=== PATIENT | male | born 1980 | race Caucasian/White ===

== ENCOUNTER 2016-12-03 09:14 | Inpatient (IN) | payer BC ==
[2016-12-03] MEDS ORDERED: NS 0.9% 1000 ML* 1,000 ML IV ONE ×3 (09:21→10:57)
[2016-12-03 09:43] LABS: Comments Flag Yes; Hematocrit 49 % (42-52); Hemoglobin 15.9 g/dl (14.0-18.0); Mean Corpuscular HGB Conc 32 g/dl (31-36); Mean Corpuscular Hemoglobin 27 pg (27-31); Mean Corpuscular Volume 83 fL (80-94); Mean Platelet Volume 9 um3 (7.4-10.4); Red Blood Count 5.95 10^6/ul (4.0-5.4); Red Cell Distribution Width 15 % (10.5-15)
[2016-12-03 09:44] LABS: Add Diff/Slide Review? Slide Review Added
[2016-12-03 09:59] LABS: Albumin 4.2 g/dL (3.2-5.2); BUN/Creatinine Ratio 16.5 (8-20); C Reactive Protein 15.16 mg/L (< 5.00); Calcium 9.4 mg/dL (8.6-10.3); EGFR African American 97.9 (>60); EGFR Non-African American 76.1 (>60); Globulin 3.4 g/dL (2-4); Potassium 4.1 mmol/L (3.5-5.0); Total Bilirubin 0.6 mg/dL (0.2-1.0); Total Protein 7.6 g/dL (6.4-8.9)
[2016-12-03] MEDS ORDERED: NS 0.9% IVPB ONE ×2 (10:04)
[2016-12-03] MEDS ORDERED: TAZOBACTAM IVPB ONE ×2 (10:04)
[2016-12-03] MEDS ORDERED: PIPERACILLIN IVPB ONE ×2 (10:04)
[2016-12-03 10:05] LABS: Troponin I 0.11 ng/mL (<0.04)
--- NOTE | 2016-12-03 10:20 | RAD ---
Indication: Shortness of breath. Single frontal view of the chest performed at 0955 hours was reviewed. No prior study is available for comparison.. No mediastinal shift is noted. Heart is of normal size and configuration. Lung soto appear clear. IMPRESSION: NO ACTIVE CARDIOPULMONARY DISEASE IS NOTED.
[2016-12-03] MEDS ORDERED: Iohexol 350* (CONTRAST) 500 ML MDV IV ONE (10:39)
--- NOTE | 2016-12-03 10:59 | RAD ---
HISTORY: Shortness of breath and tachycardia COMPARISONS: None TECHNIQUE: Multiple contiguous axial CT scans were obtained of the chest, abdomen, and pelvis after the administration of intravenous contrast. Coronal and sagittal multiplanar reformations are submitted for review.. Oral contrast was not administered. Delayed images were obtained through the abdomen and pelvis. FINDINGS: CHEST NECK AND THYROID: The lower neck and thyroid are unremarkable. CHEST WALL: There is no lower cervical, axillary, or supraclavicular lymphadenopathy by size criteria. HEART AND PERICARDIUM: The heart is unremarkable. AORTA AND PULMONARY VASCULATURE: There are multiple pulmonary arterial filling defects at the level of the main pulmonary arterial branches and lobar branches bilaterally consistent with large bilateral pulmonary emboli. The aorta is unremarkable for technique MEDIASTINUM: There is no mediastinal lymphadenopathy by size criteria. LARRY: There is no hilar lymphadenopathy by size criteria. AIRWAY AND ESOPHAGUS: The airway is unremarkable, without endobronchial filling defect. The esophagus is grossly normal. LUNG PARENCHYMA: The lungs are clear. PLEURA: No pleural abnormalities are noted. BONES AND SOFT TISSUES: No bone or soft tissue abnormalities are noted. ABDOMEN/PELVIS: LIVER: The liver is diffusely low in attenuation compared to the spleen. There are no focal hepatic parenchymal masses. The liver is enlarged measuring 27 cm in long axis. BILE DUCTS: There is no intrahepatic or extrahepatic biliary dilatation. GALLBLADDER: The gallbladder is normal, without pericholecystic inflammatory change. PANCREAS: The pancreas is normal, without mass or ductal dilatation. SPLEEN: Normal in size and appearance. UPPER GI TRACT: Evaluation of the gastrointestinal tract is limited by incomplete gastric distention. The upper GI tract is unremarkable. SMALL BOWEL \T\ MESENTERY: The small bowel is normal in contour, course, and caliber. There is no obstruction or dilatation. COLON: The colon is normal in contour, course, caliber. There is no pericolonic inflammatory change. ADRENALS: Normal bilaterally. KIDNEYS: The kidneys are normal in shape, size, contour, and axis. There is no hydronephrosis or nephrolithiasis. There is a parapelvic cyst on the left. BLADDER: The bladder is smooth in contour. PELVIC ORGANS: The prostate gland is normal. The seminal vesicles are symmetric. AORTA: The aorta is normal. IVC: Unremarkable LYMPH NODES: There is no lymphadenopathy by size criteria. ABDOMINAL WALL: There is a large fat-containing umbilical hernia BONES: Unremarkable OTHER: None IMPRESSION: 1. LARGE BILATERAL PULMONARY EMBOLI. 2. LARGE FAT-CONTAINING VENTRAL HERNIA. 3. HEPATOMEGALY WITH FATTY INFILTRATION OF LIVER. PRELIMINARY FINDINGS OF THE PULMONARY EMBOLI WERE DISCUSSED WITH DR. SALVADOR AT APPROXIMATELY 10:53 AM ON DECEMBER 03, 2016.
[2016-12-03] MEDS ORDERED: Zosyn 3.375 GM IV - ED ONCE IVPB ONE ×2 (11:00)
[2016-12-03] MEDS ORDERED: Alteplase* 100 MG in PREMIX* 100 ML IVPB ONE (11:07)
--- NOTE | 2016-12-03 13:51 | RAD ---
Indication: Pulmonary embolism. Duplex Doppler sonography of the deep venous system of both lower extremities Bilaterally the common femoral veins, proximal greater saphenous veins, proximal deep femoral veins, femoral veins and popliteal veins appear patent and compressible. The right posterior tibial veins and peroneal veins are patent and compressible. The left calf demonstrates one of the paired posterior tibial veins demonstrate noncompressibility with no flow. The peroneal veins in the left calf are patent. IMPRESSION: There is deep venous system thrombosis involving one of the paired posterior tibial veins in the left calf.
[2016-12-03] MEDS: Heparin DRIP 25,000 UNITS(*) 25,000 UNITS/500 ML BAG IV SCH (13:59)
[2016-12-03] MEDS: Warfarin TAB(*) 5 MG PO SCH (17:38)
--- NOTE | 2016-12-03 18:21 | ED ---
nimco Hastings Timothy, scribed for Nick Hanley MD on 12/03/16 at 0935 . Shortness of Breath - HPI Summary HPI Summary: Dickson Howard is a 36 yo male presenting to [facility] with SOB with any exertion as well as diaphoresis suddenly since this morning. He denies CP. He states he has had an uncomfortable "bloating" sensation for the past 3 days. He is not in any current pain. His Mhx includes HTN. - History of Current Complaint Time Seen by Provider: 12/03/16 09:20 Hx Obtained From: Patient Onset/Duration: Sudden Onset, Lasting Hours, Still Present Timing: Constant Current Severity: Moderate Dyspnea At: Rest - Allergy/Home Medications Allergies/Adverse Reactions: Allergies Allergy/AdvReac Type Severity Reaction Status Date / Time No Known Allergies Allergy Verified 01/27/16 14:58 Home Medications: Home Medications NK [No Home Medications Reported] 12/03/16 [History Confirmed 12/03/16] PMH/Surg Hx/FS Hx/Imm Hx Cardiovascular History: Reports: Hx Hypertension Infectious Disease History: Denies: Traveled Outside the [place] in Last 30 Days - Family History Known Family History: Positive: Unknown - Social History Alcohol Use: None Substance Use Type: Reports: None Hx Tobacco Use: No Smoking Status (MU): Never Smoked Tobacco Review of Systems Positive: Skin Diaphoresis Eyes: Negative ENT: Negative Negative: Chest Pain Positive: Shortness Of Breath Gastrointestinal: Negative Genitourinary: Negative Musculoskeletal: Negative Skin: Negative Neurological: Negative Psychological: Normal All Other Systems Reviewed And Are Negative: Yes Physical Exam - Summary Physical Exam Summary: VITAL SIGNS: Reviewed. GENERAL: Patient is a well-developed and obese male who is lying in some distress secondary to his SOB. He is able to speak complete sentences. HEAD AND FACE: No signs of trauma. No ecchymosis, hematomas or skull depressions. No sinus tenderness. EYES: PERRLA, EOMI x 2, No injected conjunctiva, no nystagmus. EARS: Hearing grossly intact. Ear canals and tympanic membranes are within normal limits. MOUTH: Oropharynx within normal limits. NECK: Supple, trachea is midline, no adenopathy, no JVD, no carotid bruit, no c- spine tenderness, neck with full ROM. CHEST: Symmetric, no tenderness at palpation LUNGS: Clear to auscultation bilaterally. No wheezing or crackles. CVS: Regular rate and rhythm, S1 and S2 present, no murmurs or gallops appreciated. ABDOMEN: Soft, non-tender. No signs of distention. No rebound no guarding, and no masses palpated. Bowel sounds are normal. EXTREMITIES: FROM in all major joints, no edema, no cyanosis or clubbing. NEURO: Alert and oriented x 3. No acute neurological deficits. Speech is normal and follows commands. SKIN: Dry and warm Vital Signs On Initial Exam: Initial Vital Signs Temp 96 F 12/03/16 09:15 Pulse 147 12/03/16 09:15 Resp 26 12/03/16 09:15 BP 92/65 12/03/16 09:15 Pulse Ox 95 12/03/16 09:15 Diagnostics - Laboratory Result Diagrams: 12/03/16 09:30 12/03/16 09:30 Lab Statement: Any lab studies that have been ordered have been reviewed, and results considered in the medical decision making process. - Radiology CXR Xray Interpretation: No Acute Changes - IMPRESSION: NO ACTIVE CARDIOPULMONARY DISEASE IS NOTED. Radiology Interpretation Completed By: Radiologist - CT Chest/A/P CTA CT Interpretation: Positive (See Comments) - IMPRESSION: 1. LARGE BILATERAL PULMONARY EMBOLI. 2. LARGE FAT-CONTAINING VENTRAL HERNIA. 3. HEPATOMEGALY WITH FATTY INFILTRATION OF LIVER. CT Interpretation Completed By: Radiologist - EKG 0920 Cardiac Rate: Tachycardia - 149 BPM EKG Interpretation: Sinus tachycardia @ 149 BPM. Re-Evaluation - Re-Evaluation First Eval Re-Evaluation Time: 10:09 Change: Worse Comment: Pt is c/o abd pain Second Eval Change: Unchanged Comment: Discussed lab and imaging results with Pt, as well as results of consultations. Pt is agreeable to be admitted to the ICU. Course/Dx - Course Assessment/Plan: Dickson Howard is a 36 yo male presenting to [facility] with sudden -onset SOB and diaphoresis this morning, with an uncomfortable "bloating" sensation for the past 3 days. In the ED course he received 3.5 L of IV fluids for his hypotension and NaCl with piperacillin and tazobactam, as well as alteplase. His CXR suggests no acute cardiopulmonary disease. His CTA Chest/A/P suggests large bilateral pulmonary emboli, large fat-containing ventral hernia, and hepatomegaly with fatty infiltration of the liver. Of note in his lab studies is his WBC count of 25 with no banding, his D-dimer of 795, his glucose of 311, his lactic acid of 5.1, his troponin of 0.11, and his CRP of 15. After clinical examination and review of his lab and imaging studies as well as discussion with Dr. Anderson and Dr. Jacobs, he will be admitted to the ICU with bilateral pulmonary emboli. Dr. Jacobs recommends a TPA treatment given that Pt is unstable, hypotensive, and tachycardic. I discussed the benefits and risks of TPA treatment with the Pt, he understand and agrees to TPA treatment. At this point, Dr. jacobs will take the Pt to the ICU. Pt is unstable and critically ill. - Diagnoses Differential Diagnosis/HQI/PQRI: Positive: Pulmonary Embolism Provider Diagnoses: Pulmonary embolism, bilateral - Physician Notifications Discussed Care of Patient With: 1008 - Dr. Jacobs (ICU) - discussed Pt condition. Recommends CTA chest, CT A/P. 1052 - Dr. Zee (radiology) - discussed CT Chest/A/P, there are bilateral pulmonary emboli. 1102 - Dr. Jacobs (ICU) - discussed results of CT Chest/A/P and consult with Dr. Zee. Accepts Pt for admission to ICU. - Critical Care Time Critical Care Time: 30-74 min Discharge - Discharge Plan Condition: Stable Disposition: ADMITTED TO [facility] Referrals: Non Staff,Doctor [Primary Care Provider] - The documentation as recorded by the nimco tan Timothy accurately reflects the service I personally performed and the decisions made by me, Nick Hanley MD.
[2016-12-03] MEDS: Famotidine TAB* 20 MG PO SCH (20:28)
--- NOTE | 2016-12-03 21:41 | HP ---
ADMISSION HISTORY AND PHYSICAL: DATE OF ADMISSION: 12/03/16 REASON FOR ICU ADMISSION: Acute pulmonary emboli with hemodynamic instability. HISTORY OF PRESENT ILLNESS: The patient is a 36-year-old white male, who presented to the emergency department with a 3-day history of increasing shortness of breath and on CT angiography of the chest was found to have large, bilateral pulmonary emboli. The patient has no prior history of venous thromboembolism and no history of leg trauma, diabetes, or coagulation abnormalities. The patient is, however, morbidly obese. The patient denies chest pain, cough, or hemoptysis. PAST MEDICAL HISTORY: There are no other medical problems. MEDICATIONS: There are no outpatient meds. 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 There is no history of alcohol or drug abuse and no history of smoking. REVIEW OF SYSTEMS: Noncontributory. PHYSICAL EXAMINATION GENERAL: On an initial exam, the patient was apprehensive, tachypneic, and mildly diaphoretic. VITAL SIGNS: Temp was 97.1, heart rate was 140, blood pressure was 80/64, respiratory rate was 36, and O2 sat was 96% on nasal O2 at 6 L per minute. HEENT: Oropharynx was clear. NECK: Supple and there were no masses or jugular venous distention. LUNGS: Auscultation of the lungs revealed diminished breath sounds with no wheezes or rhonchi. CARDIAC: Revealed no murmurs, rubs, or gallops. ABDOMEN: Protuberant, but nontender. EXTREMITIES: Warm, not cyanotic and not edematous. DIAGNOSTIC STUDIES/LAB DATA: Admission laboratory tests were significant for a white blood count of 25,000, bicarb of 20, anion gap of 16, and lactate of 5.1. Chest x-ray showed cardiomegaly with no pulmonary infiltrates. EKG showed a sinus tachycardia with no ST or T-wave changes. CT angiogram of the chest was as reported. OVERALL IMPRESSION: Bilateral pulmonary emboli with hemodynamic instability in a patient with morbid obesity. MANAGEMENT PLAN: Will begin with thrombolytic therapy using tPA and follow this with a continuous IV heparin infusion. We will also use Coumadin as an oral anticoagulant given the patient's obesity (i.e., newer anticoagulants use the same dose regardless of body weight, and thus micht produce inadequate anticoagulation in morbidly obese patients). Prognosis is guarded at this time. CRITICAL CARE TIME: (Including time examining the patient in the ED and ICU) is 60 minutes. [id number]/[facility] #: [id number] JACKIE
[2016-12-03] MEDS ORDERED: Heparin VIAL(*) 5000 UNITS/ML VIAL (FIVE THOUSAND) ONE (21:44)
[2016-12-03] MEDS: Heparin VIAL(*) 5000 UNITS/ML VIAL (FIVE THOUSAND) IV PRN (21:48)
[2016-12-04 06:10] LABS: Hematocrit 40 % (42-52); Mean Corpuscular HGB Conc 33 g/dl (31-36); Mean Corpuscular Hemoglobin 28 pg (27-31); Mean Corpuscular Volume 83 fL (80-94); Mean Platelet Volume 9 um3 (7.4-10.4); Red Blood Count 4.74 10^6/ul (4.0-5.4); Red Cell Distribution Width 15 % (10.5-15)
[2016-12-04 06:27] LABS: EGFR African American 114.7 (>60); EGFR Non-African American 89.2 (>60)
[2016-12-04] MEDS: Heparin VIAL(*) 5000 UNITS/ML VIAL (FIVE THOUSAND) IV PRN ×3 (06:50→23:32)
[2016-12-04] MEDS: Famotidine TAB* 20 MG PO SCH ×2 (08:10→20:50)
--- NOTE | 2016-12-04 12:21 | PN ---
Critical Care Services: Has improved markedly since admission. Hypotension and diaphoresis have resolved , and patient is now breathing comfortably. Is currently on a heparin infusion, and first coumadin dose was given yesterday. Vital Signs: Temp Pulse Resp BP SpO2 FiO2 98.7 F 92 20 138/87 92 99 Physical Exam: Gen:Sitting up in bed. No distess. Lungs: No wheezes or crackles. Extremities:No cyanosis or edema Fluid Balance (Past 24 Hours): 12/04/16 06:59 Intake Total 2824 Output Total 2450 Balance 374 Weight 390 lb 7oz Intake: IV Fluids 1112 Medicated IV 362 heparin 362 Oral 1350 Output: Urine 2450 Labs: 12/04/16 12/04/16 05:47 05:47 INR (Anticoag Therapy) 1.14 H BUN 14 Creatinine 0.95 Est GFR ( Amer) 114.7 Est GFR (Non-Af Amer) 89.2 12/04/16 05:47 WBC 11.0 RBC 4.74 Hgb 13.0 L Hct 40 L MCV 83 MCH 28 MCHC 33 RDW 15 Plt Count 187 MPV 9 Studies: Venous ultrasound: Clot in the posterior tibial veins in the left calf. No thigh thrombi. Nutrition: Regular diet Impression: Clinically much improved. Has minimal residual clot burden in the legs. Plan: 1. Continue heparin infusion until INR is therapeutic on coumadin. 2. Hematology consult (sent) to evaluate coagulation status.
[2016-12-04] MEDS: Heparin DRIP 25,000 UNITS(*) 25,000 UNITS/500 ML BAG IV SCH ×2 (13:18→13:38)
[2016-12-04] MEDS: Warfarin TAB(*) 5 MG PO SCH (17:01)
[2016-12-05] MEDS ORDERED: Dextrose 50% Syringe 50 ML* 25 GM/50 ML SYRINGE IV PUSH PRN (07:30)
[2016-12-05 07:44] LABS: Hematocrit 42 % (42-52); Mean Corpuscular HGB Conc 34 g/dl (31-36); Mean Corpuscular Hemoglobin 28 pg (27-31); Mean Corpuscular Volume 82 fL (80-94); Red Blood Count 5.08 10^6/ul (4.0-5.4); Red Cell Distribution Width 14 % (10.5-15); White Blood Count 11.2 10^3/ul (3.5-10.8)
[2016-12-05 07:48] LABS: Comments Flag Yes
[2016-12-05 07:50] LABS: Add Diff/Slide Review? Slide Review Added
[2016-12-05] MEDS: Heparin DRIP 25,000 UNITS(*) 25,000 UNITS/500 ML BAG IV SCH (08:13)
[2016-12-05] MEDS: Heparin VIAL(*) 5000 UNITS/ML VIAL (FIVE THOUSAND) IV PRN (08:13)
[2016-12-05] MEDS: Hydrochlorothiazide TAB* 25 MG PO SCH (08:20)
[2016-12-05] MEDS: Famotidine TAB* 20 MG PO SCH ×2 (08:20→20:49)
[2016-12-05] MEDS: Insulin LISPRO* 1 UNITS UNIT SUBCUT SCH ×4 (08:20→20:52)
[2016-12-05 09:11] LABS: Troponin I 0.08 ng/mL (<0.04)
[2016-12-05 10:00] LABS: Calcium 8.6 mg/dL (8.6-10.3); EGFR African American 146.2 (>60); EGFR Non-African American 113.7 (>60)
[2016-12-05 10:05] LABS: Potassium 4.2 mmol/L (3.5-5.0)
[2016-12-05] MEDS ORDERED: Argatroban(*) 250 MG in NS 0.9% 250 ML* 247.5 ML IV SCH ×4 (11:00)
--- NOTE | 2016-12-05 12:10 | PN ---
Subjective Date of Service: 12/05/16 Interval History: Pt feels well. no complaints. questions about Coumadin tx and new DM dx answered and explained Objective Active Medications: Dextrose (D50w Syringe 50 Ml*) 12.5 gm IV PUSH .FOR FS < 60 - SS PRN PRN Reason: FS < 60 Famotidine (Pepcid Tab*) 20 mg PO BID [facility] Last Admin: 12/05/16 08:20 Dose: 20 mg Hydrochlorothiazide (Hydrodiuril Tab*) 25 mg PO DAILY [facility] Last Admin: 12/05/16 08:20 Dose: 25 mg Argatroban 250 mg/ Sodium (Chloride) 250 mls @ 21.25 mls/hr IV Q12H THAI; 2 MCG/ KG/MIN PRN Reason: Protocol Last Admin: 12/05/16 11:29 Dose: 21.25 mls/hr Insulin Human Lispro (Humalog*) 0 units SUBCUT ACHS [facility] PRN Reason: Protocol Last Admin: 12/05/16 11:35 Dose: Not Given Pharmacy Profile Note (Coumadin Daily Reminder*) 1 note FOLLOW UP 1700 [facility] Last Admin: 12/04/16 17:01 Dose: 1 note Warfarin Sodium (Coumadin Tab(*)) 5 mg PO DAILY@1700 [facility] PRN Reason: Protocol Last Admin: 12/04/16 17:01 Dose: 5 mg Vital Signs 12/04/16 12/04/16 12/04/16 13:00 14:12 15:53 Temperature 98.3 F 98.1 F Pulse Rate 92 102 95 Respiratory 19 16 Rate Blood Pressure 150/87 142/80 163/95 (mmHg) O2 Sat by Pulse 93 94 95 Oximetry 12/04/16 12/04/16 12/04/16 16:03 19:43 20:53 Temperature 98.7 F Pulse Rate 96 93 Respiratory Rate Blood Pressure 151/92 174/96 148/80 (mmHg) O2 Sat by Pulse 96 Oximetry 12/05/16 12/05/16 12/05/16 00:04 01:52 03:31 Temperature 98.5 F 98.3 F Pulse Rate 89 85 Respiratory 16 16 16 Rate Blood Pressure 146/89 144/88 (mmHg) O2 Sat by Pulse 96 98 Oximetry 12/05/16 12/05/16 07:16 08:00 Temperature 98.0 F Pulse Rate 88 Respiratory 18 16 Rate Blood Pressure 153/96 (mmHg) O2 Sat by Pulse 96 Oximetry Oxygen Devices in Use Now: None Appearance: 36 yo obese M in nAd, aAOx3 Eyes: No Scleral Icterus, PERRLA Ears/Nose/Mouth/Throat: NL Teeth, Lips, Gums, Mucous Membranes Moist Neck: NL Appearance and Movements; NL JVP, Trachea Midline Respiratory: Symmetrical Chest Expansion and Respiratory Effort, Clear to Auscultation Cardiovascular: NL Sounds; No Murmurs; No JVD, RRR Abdominal: NL Sounds; No Tenderness; No Distention, No Hepatosplenomegaly Lymphatic: No Cervical Adenopathy Extremities: No Edema, No Clubbing, Cyanosis Skin: No Rash or Ulcers, No Nodules or Sclerosis Neurological: Alert and Oriented x 3, NL Muscle Strength and Tone Result Diagrams: 12/05/16 07:38 12/05/16 07:38 Microbiology and Other Data: Microbiology 12/03/16 15:30 Nasal Screen MRSA (PCR)(DOM) - Final Nasal Mrsa Negative Assess/Plan/Problems-Billing Assessment: 36 yo M with h/o obesity presents with new PE due to hemodynamic instability received TPA - Patient Problems (1) Acute pulmonary embolus Comment: S/p TPA in ICU Now no hypoxia noted on heparin gtt PTT was not therapeutic despite titration of dose. Appreciate Dr. Zavala's consult: started Argatroban, cont coumadin, daily INR to follow. Dr. Zavala ordered hypercoag studies and will folow with pt in the office ofter discharge (2) DM2 (diabetes mellitus, type 2) Comment: New dx HbA1C 7.7 DM education, nutrition ordered cont iSS It possible that it may be diet controlled. He may also need to be started on metformin depending on the BG levels in the next 24-48 hrs. (3) DVT prophylaxis Comment: Argatroban, coumadin Status and Disposition: inpatient. needs to have INR>4 prior to Argatroban discontinuation
--- NOTE | 2016-12-05 14:23 | CONS ---
CC: Dr. Bond CONSULTATION REPORT: DATE OF CONSULT: CHIEF COMPLAINT: Pulmonary embolus. HISTORY OF PRESENT ILLNESS: A 36-year-old male who has generally been healthy, past medical history of obesity. 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 Approximately 6 days ago, he had some fatigue, bloating, and shortness of breath. He attributed the shortness of breath to his abdominal bloating . The fatigue he thought was secondary to his long work schedule. He woke up 2 days ago feeling re latively well. He got up to take a shower. He had sudden severe shortness of breath, dizziness, an d a cold sweat. He could not walk more than a few steps without having to sit. He called an ambula nce and went to the emergency room. On presentation, he had CT angiogram and was found to have a la rge saddle pulmonary emboli. On presentation, he had a blood pressure of 80/64, saturation was 95% on nasal cannula, and heart rate of 100. He was admitted to the intensive care unit and given tPA t hrombolysis by Dr. Pimentel. He tolerated the thrombolysis well and had improved breathing, almost im mediately upon administration. He has been doing better since that time. He is no longer dizzy, he is able to walk around the floor doing several laps without shortness of breath. He has no prior history of thrombosis. There is no family history of thrombosis. However, he is an only child and both his parents are only children. He does not smoke. 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 PAST MEDICAL HISTORY: 1. Obesity. 2. Insulin resistance, diagnosed this hospitalization. 3. Hypertension, diagnosed this hospitalization. SURGERIES: None. HOME MEDICATIONS: None. ALLERGIES: None. SOCIAL HISTORY: Does not smoke. Does not drink. 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 He is in the [employer] with his significant other. He lives alone. No children. REVIEW OF SYSTEMS: As discussed above. Also, some minor knee pain. A 14-point review is otherwise negative. PHYSICAL EXAM: Temperature 98.0, BP 153/96, pulse 88, respirations 14, sat 96% on room air. HEENT: Mucosa is moist. No lesions. No cervical or supraclavicular lymphadenopathy. Lungs: Clear to a uscultation. Heart: Regular rhythm. S1, S2 distant. Abdomen: Obese, nontender, nondistended. E xtremities: No edema. Negative Homans sign. No redness. DIAGNOSTIC STUDIES/LAB DATA: Labs: Essentially normal blood count with a platelet count of 187, th en clumped. He had a D-dimer of 795 on admission. He was not on heparin for 2 days and PTT was 16. 6, no increase at all. He has mildly elevated LFTs on admission. Creatinine 1.77. Normal thyroid function. CT scan shows large bilateral pulmonary emboli as noted above. No lymphadenopathy. Abdominal exam w as essentially negative. On the ultrasound, there is a DVT in the left calf, posterior tibial vein, otherwise negative. ASSESSMENT AND PLAN: A 36-year-old male presents with large pulmonary embolus. 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 1. Agree with current management. However, given lack of response to heparin, I recommend changing to argatroban. Pharmacy was called and infusion will be started. We will check PTT per protocol. 2. The patient brought up the possibility of him being AT-III deficient given heparin resistance. This is possible, although it is a rare entity. Cannot be tested for until he is off all anticoagu lation. In the meantime, we can treat him with argatroban and Coumadin. I am going to send evaluat ion for prothrombin gene mutation, Leiden Factor V, and a lupus anticardiolipin. Other studies like ly to be done in the future. 3. Agree with Coumadin 5 mg daily, increase if subtherapeutic on Wednesday by INR. We will need to fol low argatroban package insert when testing INRs. 4. We will follow in the hospital and then once he goes home, we will see him in clinic. We can ma nage Coumadin as an outpatient through our office. [id number]/[facility] #: [id number]
[2016-12-05] MEDS: Warfarin TAB(*) 5 MG PO SCH (17:09)
[2016-12-05] MEDS: Argatroban(*) 250 MG in NS 0.9% 250 ML* 247.5 ML IV SCH (21:05)
[2016-12-06] MEDS: Argatroban(*) 250 MG in NS 0.9% 250 ML* 247.5 ML IV SCH ×5 (05:53→22:51)
[2016-12-06 06:33] LABS: EGFR African American 103.3 (>60); EGFR Non-African American 80.4 (>60)
[2016-12-06 07:40] LABS: Hematocrit 44 % (42-52); Hemoglobin 14.6 g/dl (14.0-18.0); Mean Corpuscular HGB Conc 34 g/dl (31-36); Mean Corpuscular Hemoglobin 27 pg (27-31); Mean Corpuscular Volume 81 fL (80-94); Mean Platelet Volume 9 um3 (7.4-10.4); Red Blood Count 5.37 10^6/ul (4.0-5.4); Red Cell Distribution Width 14 % (10.5-15); White Blood Count 9.9 10^3/ul (3.5-10.8)
[2016-12-06] MEDS: Famotidine TAB* 20 MG PO SCH ×2 (08:43→22:54)
[2016-12-06] MEDS: Hydrochlorothiazide TAB* 25 MG PO SCH (08:43)
[2016-12-06] MEDS: Insulin LISPRO* 1 UNITS UNIT SUBCUT SCH ×4 (08:43→22:58)
--- NOTE | 2016-12-06 12:46 | PN ---
Progress Note - Progress Note SOAP: Subjective: []Doing well. Walking and no SOB. No brusing or bleeding. Eating well. No leg pain, no chest pain. Dextrose (D50w Syringe 50 Ml*) 12.5 gm IV PUSH .FOR FS < 60 - SS PRN PRN Reason: FS < 60 Famotidine (Pepcid Tab*) 20 mg PO BID [facility] Last Admin: 12/06/16 08:43 Dose: 20 mg Hydrochlorothiazide (Hydrodiuril Tab*) 25 mg PO DAILY [facility] Last Admin: 12/06/16 08:43 Dose: 25 mg Argatroban 250 mg/ Sodium (Chloride) 250 mls @ 32.94 mls/hr IV Q7H THAI; 3.1 MCG /KG/MIN PRN Reason: Protocol Last Admin: 12/06/16 09:21 Dose: Not Given Insulin Human Lispro (Humalog*) 0 units SUBCUT ACHS [facility] PRN Reason: Protocol Last Admin: 12/06/16 11:34 Dose: Not Given Pharmacy Profile Note (Coumadin Daily Reminder*) 1 note FOLLOW UP 1700 [facility] Last Admin: 12/05/16 17:10 Dose: 1 note Warfarin Sodium (Coumadin Tab(*)) 5 mg PO DAILY@1700 [facility] PRN Reason: Protocol Last Admin: 12/05/16 17:09 Dose: 5 mg Objective: [] Vital Signs Temp Pulse Resp BP Pulse Ox 98.2 F 91 17 137/82 96 12/06/16 11:30 12/06/16 11:30 12/06/16 11:30 12/06/16 11:30 12/06/16 11:30 HEENT - mucosa moist, no JVD CTA RRR S1S2 ABD - Obease, NT/ND Ext with edema in either side, good pulses Assessment: []Better on Argatroban with PTT 51, INR1.34 Plan: []1. Continue Coumadin 5 mg daily for now 2. Continue Argatroban 3. Will follow in hospital, coagulation work up pending.
--- NOTE | 2016-12-06 14:36 | PN ---
Subjective Date of Service: 12/06/16 Interval History: Pt has no complaints. Objective Active Medications: Dextrose (D50w Syringe 50 Ml*) 12.5 gm IV PUSH .FOR FS < 60 - SS PRN PRN Reason: FS < 60 Famotidine (Pepcid Tab*) 20 mg PO BID [facility] Last Admin: 12/06/16 08:43 Dose: 20 mg Hydrochlorothiazide (Hydrodiuril Tab*) 25 mg PO DAILY [facility] Last Admin: 12/06/16 08:43 Dose: 25 mg Argatroban 250 mg/ Sodium (Chloride) 250 mls @ 32.94 mls/hr IV Q7H [facility]; 3.1 MCG /KG/MIN PRN Reason: Protocol Last Admin: 12/06/16 14:10 Dose: 32.94 mls/hr Insulin Human Lispro (Humalog*) 0 units SUBCUT ACHS [facility] PRN Reason: Protocol Last Admin: 12/06/16 11:34 Dose: Not Given Pharmacy Profile Note (Coumadin Daily Reminder*) 1 note FOLLOW UP 1700 [facility] Last Admin: 12/05/16 17:10 Dose: 1 note Warfarin Sodium (Coumadin Tab(*)) 5 mg PO DAILY@1700 [facility] PRN Reason: Protocol Last Admin: 12/05/16 17:09 Dose: 5 mg Vital Signs 12/05/16 12/05/16 12/05/16 15:13 19:14 20:30 Temperature 98.1 F 97.8 F Pulse Rate 91 95 Respiratory 16 Rate Blood Pressure 150/92 152/86 (mmHg) O2 Sat by Pulse 96 95 Oximetry 12/05/16 12/06/16 12/06/16 23:35 03:16 08:14 Temperature 98.1 F 98.0 F 98.3 F Pulse Rate 85 80 87 Respiratory 14 16 18 Rate Blood Pressure 127/75 129/76 154/96 (mmHg) O2 Sat by Pulse 96 95 95 Oximetry 12/06/16 12/06/16 08:52 11:30 Temperature 98.2 F Pulse Rate 91 Respiratory 20 17 Rate Blood Pressure 137/82 (mmHg) O2 Sat by Pulse 96 Oximetry Oxygen Devices in Use Now: None Appearance: 36 yo obese M in NAD, AAOx3 Eyes: No Scleral Icterus, PERRLA Ears/Nose/Mouth/Throat: NL Teeth, Lips, Gums, Mucous Membranes Moist Neck: NL Appearance and Movements; NL JVP, Trachea Midline Respiratory: Symmetrical Chest Expansion and Respiratory Effort, Clear to Auscultation Cardiovascular: NL Sounds; No Murmurs; No JVD, RRR Abdominal: NL Sounds; No Tenderness; No Distention Lymphatic: No Cervical Adenopathy Extremities: No Clubbing, Cyanosis Skin: No Rash or Ulcers, No Nodules or Sclerosis Neurological: Alert and Oriented x 3, NL Muscle Strength and Tone Result Diagrams: 12/06/16 06:10 12/06/16 06:10 Microbiology and Other Data: Microbiology 12/03/16 15:30 Nasal Screen MRSA (PCR)(DOM) - Final Nasal Mrsa Negative Assess/Plan/Problems-Billing Assessment: 36 yo M with h/o obesity presents with new PE due to hemodynamic instability received TPA - Patient Problems (1) Acute pulmonary embolus Comment: S/p TPA in ICU Now no hypoxia noted on heparin gtt PTT was not therapeutic despite titration of dose. Appreciate Dr. Zavala's consult: started Argatroban on 12/05/16, cont coumadin, daily INR to follow. Dr. Zavala ordered hypercoag studies and will folow with pt in the office ofter discharge (2) DM2 (diabetes mellitus, type 2) Comment: New dx HbA1C 7.7 DM education, nutrition ordered cont iSS It possible that it may be diet controlled- so far BG had been in 102-133 on diet alone (3) Troponin level elevated Comment: at admission, due to massive PE requiring TPA (4) HTN (hypertension) Comment: HCTZ started, now controlled (5) DVT prophylaxis Comment: Argatroban, coumadin Status and Disposition: inpatient. needs to have INR>4 prior to Argatroban discontinuation
[2016-12-06] MEDS: Warfarin TAB(*) 5 MG PO SCH (18:12)
[2016-12-07] MEDS: Argatroban(*) 250 MG in NS 0.9% 250 ML* 247.5 ML IV SCH ×4 (06:17→22:23)
[2016-12-07 07:15] LABS: Hematocrit 44 % (42-52); Mean Corpuscular HGB Conc 34 g/dl (31-36); Mean Corpuscular Hemoglobin 28 pg (27-31); Mean Corpuscular Volume 82 fL (80-94); Mean Platelet Volume 9 um3 (7.4-10.4); Red Blood Count 5.39 10^6/ul (4.0-5.4); Red Cell Distribution Width 15 % (10.5-15); White Blood Count 10.9 10^3/ul (3.5-10.8)
[2016-12-07] MEDS: Famotidine TAB* 20 MG PO SCH ×2 (08:12→20:43)
[2016-12-07] MEDS: Hydrochlorothiazide TAB* 25 MG PO SCH (08:12)
[2016-12-07] MEDS: Insulin LISPRO* 1 UNITS UNIT SUBCUT SCH ×4 (08:12→20:43)
--- NOTE | 2016-12-07 14:22 | PN ---
Subjective Date of Service: 12/07/16 Interval History: No new complaints. Ambulating down the halls with no problem Objective Active Medications: Dextrose (D50w Syringe 50 Ml*) 12.5 gm IV PUSH .FOR FS < 60 - SS PRN PRN Reason: FS < 60 Famotidine (Pepcid Tab*) 20 mg PO BID [facility] Last Admin: 12/07/16 08:12 Dose: 20 mg Hydrochlorothiazide (Hydrodiuril Tab*) 25 mg PO DAILY [facility] Last Admin: 12/07/16 08:12 Dose: 25 mg Argatroban 250 mg/ Sodium (Chloride) 250 mls @ 32.94 mls/hr IV Q7H [facility]; 3.1 MCG /KG/MIN PRN Reason: Protocol Last Admin: 12/07/16 14:14 Dose: 32.94 mls/hr Insulin Human Lispro (Humalog*) 0 units SUBCUT ACHS [facility] PRN Reason: Protocol Last Admin: 12/07/16 12:00 Dose: Not Given Pharmacy Profile Note (Coumadin Daily Reminder*) 1 note FOLLOW UP 1700 [facility] Last Admin: 12/06/16 18:12 Dose: 1 note Warfarin Sodium (Coumadin Tab(*)) 5 mg PO DAILY@1700 [facility] PRN Reason: Protocol Last Admin: 12/06/16 18:12 Dose: 5 mg Vital Signs 12/06/16 12/06/16 12/06/16 15:09 19:32 23:00 Temperature 97.9 F 98.4 F Pulse Rate 98 103 Respiratory 20 Rate Blood Pressure 146/88 150/98 (mmHg) O2 Sat by Pulse 96 95 Oximetry 12/06/16 12/07/16 12/07/16 23:14 03:14 07:57 Temperature 98.4 F 97.5 F 97.3 F Pulse Rate 89 82 88 Respiratory 17 16 16 Rate Blood Pressure 144/87 125/69 126/66 (mmHg) O2 Sat by Pulse 96 97 91 Oximetry Oxygen Devices in Use Now: None Appearance: 36 yo M in nAD,AAOx3 Eyes: No Scleral Icterus, PERRLA Ears/Nose/Mouth/Throat: NL Teeth, Lips, Gums, Mucous Membranes Moist Neck: NL Appearance and Movements; NL JVP, Trachea Midline Respiratory: Symmetrical Chest Expansion and Respiratory Effort, Clear to Auscultation Cardiovascular: NL Sounds; No Murmurs; No JVD, RRR Abdominal: NL Sounds; No Tenderness; No Distention Lymphatic: No Cervical Adenopathy Extremities: No Edema Skin: No Rash or Ulcers, No Nodules or Sclerosis Neurological: Alert and Oriented x 3, NL Muscle Strength and Tone Result Diagrams: 12/07/16 07:03 12/06/16 06:10 Microbiology and Other Data: Microbiology 12/03/16 15:30 Nasal Screen MRSA (PCR)(DOM) - Final Nasal Mrsa Negative Assess/Plan/Problems-Billing Assessment: 36 yo M with h/o obesity presents with new PE due to hemodynamic instability received TPA - Patient Problems (1) Acute pulmonary embolus Comment: S/p TPA in ICU Now no hypoxia noted on heparin gtt PTT was not therapeutic despite titration of dose. Appreciate Dr. Zavala's consult: started Argatroban on 12/05/16, cont coumadin, daily INR to follow. Dr. Zavala ordered hypercoag studies and will folow with pt in the office ofter discharge (2) DM2 (diabetes mellitus, type 2) Comment: New dx HbA1C 7.7 DM education, nutrition ordered cont iSS It possible that it may be diet controlled- so far BG had been in 102-133 on diet alone (3) Troponin level elevated Comment: at admission, due to massive PE requiring TPA (4) HTN (hypertension) Comment: HCTZ started, now controlled (5) DVT prophylaxis Comment: Argatroban, coumadin Status and Disposition: inpatient. needs to have INR>4 prior to Argatroban discontinuation
[2016-12-07] MEDS: Warfarin TAB(*) 5 MG PO SCH (17:07)
[2016-12-08] MEDS: Argatroban(*) 250 MG in NS 0.9% 250 ML* 247.5 ML IV SCH ×3 (06:19→22:58)
[2016-12-08] MEDS: Insulin LISPRO* 1 UNITS UNIT SUBCUT SCH ×4 (08:42→20:58)
[2016-12-08] MEDS: Famotidine TAB* 20 MG PO SCH ×2 (08:53→21:25)
[2016-12-08] MEDS: Hydrochlorothiazide TAB* 25 MG PO SCH (08:53)
[2016-12-08 09:44] LABS: Hematocrit 46 % (42-52); Hemoglobin 15.5 g/dl (14.0-18.0); Mean Corpuscular HGB Conc 34 g/dl (31-36); Mean Corpuscular Hemoglobin 28 pg (27-31); Mean Corpuscular Volume 82 fL (80-94); Mean Platelet Volume 8 um3 (7.4-10.4); Red Blood Count 5.63 10^6/ul (4.0-5.4); Red Cell Distribution Width 14 % (10.5-15); White Blood Count 11.4 10^3/ul (3.5-10.8)
--- NOTE | 2016-12-08 13:23 | PN ---
Subjective Date of Service: 12/08/16 Interval History: Pt has no complaints. Objective Active Medications: Dextrose (D50w Syringe 50 Ml*) 12.5 gm IV PUSH .FOR FS < 60 - SS PRN PRN Reason: FS < 60 Famotidine (Pepcid Tab*) 20 mg PO BID [facility] Last Admin: 12/08/16 08:53 Dose: 20 mg Hydrochlorothiazide (Hydrodiuril Tab*) 25 mg PO DAILY [facility] Last Admin: 12/08/16 08:53 Dose: 25 mg Argatroban 250 mg/ Sodium (Chloride) 250 mls @ 32.94 mls/hr IV Q7H [facility]; 3.1 MCG /KG/MIN PRN Reason: Protocol Last Admin: 12/08/16 06:19 Dose: 32.94 mls/hr Insulin Human Lispro (Humalog*) 0 units SUBCUT ACHS [facility] PRN Reason: Protocol Last Admin: 12/08/16 11:38 Dose: Not Given Pharmacy Profile Note (Coumadin Daily Reminder*) 1 note FOLLOW UP 1700 [facility] Last Admin: 12/07/16 17:09 Dose: 1 note Warfarin Sodium (Coumadin Tab(*)) 7.5 mg PO DAILY@1700 [facility] PRN Reason: Protocol Vital Signs 12/07/16 12/07/16 12/07/16 14:26 15:50 19:37 Temperature 98.5 F Pulse Rate 98 97 Respiratory 20 17 Rate Blood Pressure 159/93 147/79 (mmHg) O2 Sat by Pulse 94 94 Oximetry 12/07/16 12/07/16 12/07/16 19:44 20:00 23:58 Temperature 98.2 F 97.9 F Pulse Rate 86 Respiratory 18 16 Rate Blood Pressure 137/80 (mmHg) O2 Sat by Pulse 98 Oximetry 12/08/16 12/08/16 03:32 07:59 Temperature 97.6 F 98.0 F Pulse Rate 79 89 Respiratory 16 16 Rate Blood Pressure 125/74 136/89 (mmHg) O2 Sat by Pulse 98 96 Oximetry Oxygen Devices in Use Now: None Appearance: 36 yo M in NAD. AAOx3 Eyes: No Scleral Icterus, PERRLA Ears/Nose/Mouth/Throat: NL Teeth, Lips, Gums, Mucous Membranes Moist Neck: NL Appearance and Movements; NL JVP, Trachea Midline Respiratory: Symmetrical Chest Expansion and Respiratory Effort, Clear to Auscultation Cardiovascular: NL Sounds; No Murmurs; No JVD, No Edema Abdominal: NL Sounds; No Tenderness; No Distention Lymphatic: No Cervical Adenopathy Extremities: No Edema, No Clubbing, Cyanosis Skin: No Rash or Ulcers, No Nodules or Sclerosis Neurological: Alert and Oriented x 3, NL Muscle Strength and Tone Result Diagrams: 12/08/16 09:29 12/08/16 09:29 Microbiology and Other Data: Microbiology 12/03/16 15:30 Nasal Screen MRSA (PCR)(DOM) - Final Nasal Mrsa Negative Assess/Plan/Problems-Billing Assessment: 36 yo M with h/o obesity presents with new PE due to hemodynamic instability received TPA - Patient Problems (1) Acute pulmonary embolus Comment: S/p TPA in ICU Now no hypoxia noted on heparin gtt PTT was not therapeutic despite titration of dose. Appreciate Dr. Zavala's consult: started Argatroban on 12/05/16, cont coumadin, daily INR to follow. Dr. Zavala ordered hypercoag studies that are pending and will folow with pt in the office ofter discharge (2) DM2 (diabetes mellitus, type 2) Comment: New dx HbA1C 7.7 DM education, nutrition ordered cont iSS so far it had been diet controlled (3) Troponin level elevated Comment: at admission, due to massive PE requiring TPA (4) HTN (hypertension) Comment: HCTZ started, now controlled (5) DVT prophylaxis Comment: Argatroban, coumadin Status and Disposition: inpatient. needs to have INR>4 prior to Argatroban discontinuation
[2016-12-08] MEDS: Warfarin TAB(*) 7.5 MG PO SCH (17:10)
[2016-12-09] MEDS: Argatroban(*) 250 MG in NS 0.9% 250 ML* 247.5 ML IV SCH ×4 (06:44→23:18)
[2016-12-09] MEDS: Insulin LISPRO* 1 UNITS UNIT SUBCUT SCH ×2 (08:05→12:33)
[2016-12-09] MEDS: Hydrochlorothiazide TAB* 25 MG PO SCH (08:17)
[2016-12-09] MEDS: Famotidine TAB* 20 MG PO SCH ×2 (08:18→22:11)
[2016-12-09 08:44] LABS: Hematocrit 45 % (42-52); Mean Corpuscular HGB Conc 33 g/dl (31-36); Mean Corpuscular Hemoglobin 27 pg (27-31); Mean Corpuscular Volume 82 fL (80-94); Mean Platelet Volume 9 um3 (7.4-10.4); Red Blood Count 5.54 10^6/ul (4.0-5.4); Red Cell Distribution Width 15 % (10.5-15); White Blood Count 9.6 10^3/ul (3.5-10.8)
--- NOTE | 2016-12-09 14:15 | PN ---
Subjective Date of Service: 12/09/16 Interval History: Patient seen this morning. No complaints. Denies SOB, chest pain, leg pain. Has been ambulating. Family History: Unchanged from Admission Social History: Unchanged from Admission Past Medical History: Unchanged from Admission Objective Active Medications: Dextrose (D50w Syringe 50 Ml*) 12.5 gm IV PUSH .FOR FS < 60 - SS PRN Famotidine (Pepcid Tab*) 20 mg PO BID [facility] Hydrochlorothiazide (Hydrodiuril Tab*) 25 mg PO DAILY [facility] Argatroban 250 mg/ Sodium (Chloride) 250 mls @ 32.94 mls/hr IV Q7H [facility]; 3.1 MCG /KG/MIN Insulin Human Lispro (Humalog*) 0 units SUBCUT ACHS [facility] Pharmacy Profile Note (Coumadin Daily Reminder*) 1 note FOLLOW UP 1700 [facility] Warfarin Sodium (Coumadin Tab(*)) 7.5 mg PO DAILY@1700 [facility] Vital Signs 12/08/16 12/08/16 12/08/16 15:47 19:30 20:00 Temperature 97.8 F 98.5 F Pulse Rate 93 102 Respiratory 17 17 18 Rate Blood Pressure 136/84 128/80 (mmHg) O2 Sat by Pulse 96 95 Oximetry 12/09/16 12/09/16 12/09/16 00:14 07:10 08:00 Temperature 97.9 F 97.8 F Pulse Rate 92 83 Respiratory 16 16 16 Rate Blood Pressure 126/80 144/89 (mmHg) O2 Sat by Pulse 96 95 Oximetry Oxygen Devices in Use Now: None Appearance: Middle-aged, M, laying in chair in NAD Eyes: No Scleral Icterus Ears/Nose/Mouth/Throat: Mucous Membranes Moist Neck: NL Appearance and Movements; NL JVP Respiratory: Symmetrical Chest Expansion and Respiratory Effort, Clear to Auscultation Cardiovascular: NL Sounds; No Murmurs; No JVD, RRR Abdominal: NL Sounds; No Tenderness; No Distention Lymphatic: No Cervical Adenopathy Extremities: No Edema Skin: No Rash or Ulcers Neurological: Alert and Oriented x 3 Result Diagrams: 12/09/16 08:30 12/08/16 09:29 Assess/Plan/Problems-Billing Assessment: 36 yo M with h/o obesity presents with new PE due to hemodynamic instability received TPA - Patient Problems (1) Acute pulmonary embolus Current Visit: Yes Comment: S/p TPA in ICU on heparin gtt PTT was not therapeutic despite titration of dose. Appreciate Dr. Zavala's consult: started Argatroban on 12/05/16, cont coumadin, daily INR to follow. Dr. Zavala ordered hypercoag studies that are pending and will follow with pt in the office ofter discharge (2) DM2 (diabetes mellitus, type 2) Current Visit: Yes Comment: New dx HbA1C 7.7 DM education, nutrition ordered Diet control for now, will stop checking frequent sugars (3) HTN (hypertension) Current Visit: Yes Comment: HCTZ started, now controlled (4) Troponin level elevated Current Visit: Yes Comment: at admission, due to massive PE requiring TPA (5) DVT prophylaxis Current Visit: Yes Comment: Argatroban, coumadin Status and Disposition: inpatient. needs to have INR>4 prior to Argatroban discontinuation
[2016-12-09 17:05] LABS: Phospholipid Ab IgG < 9.4 GPL; Phospholipid Ab IgM, S < 9.4 MPL
[2016-12-09] MEDS: Warfarin TAB(*) 7.5 MG PO SCH (17:08)
[2016-12-10] MEDS: Argatroban(*) 250 MG in NS 0.9% 250 ML* 247.5 ML IV SCH ×3 (06:58→22:43)
[2016-12-10] MEDS: Hydrochlorothiazide TAB* 25 MG PO SCH (07:50)
[2016-12-10] MEDS: Famotidine TAB* 20 MG PO SCH ×2 (07:50→21:08)
[2016-12-10 09:28] LABS: Hematocrit 45 % (42-52); Mean Corpuscular HGB Conc 33 g/dl (31-36); Mean Corpuscular Hemoglobin 27 pg (27-31); Mean Corpuscular Volume 82 fL (80-94); Mean Platelet Volume 9 um3 (7.4-10.4); Red Cell Distribution Width 15 % (10.5-15)
[2016-12-10 09:42] LABS: EGFR African American 125.3 (>60); EGFR Non-African American 97.4 (>60)
--- NOTE | 2016-12-10 10:32 | PN ---
Progress Note - Progress Note SOAP: Subjective: []Feels good. Coumadin increased and breathing fine. Walking around. No complaints. Dextrose (D50w Syringe 50 Ml*) 12.5 gm IV PUSH .FOR FS < 60 - SS PRN PRN Reason: FS < 60 Famotidine (Pepcid Tab*) 20 mg PO BID [facility] Last Admin: 12/10/16 07:50 Dose: 20 mg Hydrochlorothiazide (Hydrodiuril Tab*) 25 mg PO DAILY [facility] Last Admin: 12/10/16 07:50 Dose: 25 mg Argatroban 250 mg/ Sodium (Chloride) 250 mls @ 32.94 mls/hr IV Q7H [facility]; 3.1 MCG /KG/MIN PRN Reason: Protocol Last Admin: 12/10/16 06:58 Dose: 32.94 mls/hr Pharmacy Profile Note (Coumadin Daily Reminder*) 1 note FOLLOW UP 1700 [facility] Last Admin: 12/09/16 17:08 Dose: 1 note Warfarin Sodium (Coumadin Tab(*)) 7.5 mg PO DAILY@1700 [facility] PRN Reason: Protocol Last Admin: 12/09/16 17:08 Dose: 7.5 mg Objective: [] Vital Signs Temp Pulse Resp BP Pulse Ox 97.4 F 97 18 140/66 98 12/10/16 07:18 12/10/16 07:18 12/10/16 07:18 12/10/16 07:18 12/10/16 07:18 HEENT - mucosa moist, no JVD CTA RRR S1S2 ABD - Obease, NT/ND Ext with edema in either side, good pulses Assessment: []INR 3.7 Plan: []1. Continue Coumadin 7.5 mg daily for now 2. Continue Argatroban 3. If INR > 4.0 , hold argatroban. Re-check after 6 hrs and if INR > 2.0 can D/ C on Coumadin 6 mg po daily.
--- NOTE | 2016-12-10 11:23 | PN ---
Subjective Date of Service: 12/10/16 Interval History: Patient seen this morning. No complaints. No chest pain, SOB, leg pain. Has been ambulating. Reports mild cough, non-productive. Family History: Unchanged from Admission Social History: Unchanged from Admission Past Medical History: Unchanged from Admission Objective Active Medications: Dextrose (D50w Syringe 50 Ml*) 12.5 gm IV PUSH .FOR FS < 60 - SS PRN PRN Reason: FS < 60 Famotidine (Pepcid Tab*) 20 mg PO BID [facility] Last Admin: 12/10/16 07:50 Dose: 20 mg Hydrochlorothiazide (Hydrodiuril Tab*) 25 mg PO DAILY [facility] Last Admin: 12/10/16 07:50 Dose: 25 mg Argatroban 250 mg/ Sodium (Chloride) 250 mls @ 32.94 mls/hr IV Q7H [facility]; 3.1 MCG /KG/MIN PRN Reason: Protocol Last Admin: 12/10/16 06:58 Dose: 32.94 mls/hr Pharmacy Profile Note (Coumadin Daily Reminder*) 1 note FOLLOW UP 1700 [facility] Last Admin: 12/09/16 17:08 Dose: 1 note Warfarin Sodium (Coumadin Tab(*)) 7.5 mg PO DAILY@1700 [facility] PRN Reason: Protocol Last Admin: 12/09/16 17:08 Dose: 7.5 mg Vital Signs 12/09/16 12/09/16 12/09/16 15:42 20:00 20:35 Temperature 98.0 F 97.8 F Pulse Rate 100 99 Respiratory 15 18 16 Rate Blood Pressure 149/87 127/85 (mmHg) O2 Sat by Pulse 96 96 Oximetry 12/09/16 12/10/16 12/10/16 23:31 04:25 07:18 Temperature 98.2 F 98.4 F 97.4 F Pulse Rate 88 80 97 Respiratory 16 16 18 Rate Blood Pressure 139/80 146/82 140/66 (mmHg) O2 Sat by Pulse 96 97 98 Oximetry 12/10/16 08:00 Temperature Pulse Rate Respiratory 18 Rate Blood Pressure (mmHg) O2 Sat by Pulse Oximetry Oxygen Devices in Use Now: None Appearance: Middle-aged, obese, M, laying in bed in NAD Eyes: No Scleral Icterus Ears/Nose/Mouth/Throat: Mucous Membranes Moist Neck: NL Appearance and Movements; NL JVP Respiratory: Symmetrical Chest Expansion and Respiratory Effort, Clear to Auscultation Cardiovascular: NL Sounds; No Murmurs; No JVD, RRR Abdominal: NL Sounds; No Tenderness; No Distention Lymphatic: No Cervical Adenopathy Extremities: No Edema Skin: No Rash or Ulcers Neurological: Alert and Oriented x 3 Result Diagrams: 12/10/16 08:15 12/10/16 08:15 Microbiology and Other Data: Microbiology 12/03/16 15:30 Nasal Screen MRSA (PCR)(DOM) - Final Nasal Mrsa Negative Assess/Plan/Problems-Billing Assessment: 36 yo M with h/o obesity presents with new PE due to hemodynamic instability received TPA - Patient Problems (1) Acute pulmonary embolus Current Visit: Yes Comment: S/p TPA in ICU on heparin gtt PTT was not therapeutic despite titration of dose. Appreciate Dr. Zavala's consult: started Argatroban on 12/05/16, cont coumadin, daily INR to follow. Dr. Zavala ordered hypercoag studies, anticardiolipin negative, remainder are pending and will follow with pt in the office ofter discharge (2) DM2 (diabetes mellitus, type 2) Current Visit: Yes Comment: New dx HbA1C 7.7 DM education, nutrition ordered Diet control for now, will stop checking frequent sugars (3) HTN (hypertension) Current Visit: Yes Comment: HCTZ started, now controlled (4) Troponin level elevated Current Visit: Yes Comment: at admission, due to massive PE requiring TPA (5) DVT prophylaxis Current Visit: Yes Comment: Argatroban, coumadin Status and Disposition: inpatient. needs to have INR>4 prior to Argatroban discontinuation
[2016-12-10] MEDS: Warfarin TAB(*) 7.5 MG PO SCH (17:38)
[2016-12-11] MEDS: Argatroban(*) 250 MG in NS 0.9% 250 ML* 247.5 ML IV SCH ×3 (05:36→08:46)
[2016-12-11 07:52] VITALS: BP 145/98
[2016-12-11 08:01] LABS: Hematocrit 47 % (42-52); Hemoglobin 15.4 g/dl (14.0-18.0); Mean Corpuscular HGB Conc 33 g/dl (31-36); Mean Corpuscular Hemoglobin 27 pg (27-31); Mean Corpuscular Volume 83 fL (80-94); Mean Platelet Volume 9 um3 (7.4-10.4); Red Blood Count 5.64 10^6/ul (4.0-5.4); Red Cell Distribution Width 15 % (10.5-15); White Blood Count 9.8 10^3/ul (3.5-10.8)
[2016-12-11] MEDS: Hydrochlorothiazide TAB* 25 MG PO SCH (08:24)
[2016-12-11] MEDS: Famotidine TAB* 20 MG PO SCH (08:24)
--- NOTE | 2016-12-11 10:15 | PN ---
Progress Note - Progress Note SOAP: Subjective: []Doing well. had many questions about his blood clot and Coumadin. Dextrose (D50w Syringe 50 Ml*) 12.5 gm IV PUSH .FOR FS < 60 - SS PRN PRN Reason: FS < 60 Famotidine (Pepcid Tab*) 20 mg PO BID [facility] Last Admin: 12/11/16 08:24 Dose: 20 mg Hydrochlorothiazide (Hydrodiuril Tab*) 25 mg PO DAILY [facility] Last Admin: 12/11/16 08:24 Dose: 25 mg Pharmacy Profile Note (Coumadin Daily Reminder*) 1 note FOLLOW UP 1700 [facility] Last Admin: 12/10/16 17:38 Dose: 1 note Warfarin Sodium (Coumadin Tab(*)) 7.5 mg PO DAILY@1700 [facility] PRN Reason: Protocol Last Admin: 12/10/16 17:38 Dose: 7.5 mg Objective: [] Vital Signs Temp Pulse Resp BP Pulse Ox 97.6 F 86 16 145/98 97 12/11/16 07:50 12/11/16 07:50 12/11/16 08:00 12/11/16 07:50 12/11/16 07:50 HEENT - mucosa moist, no JVD CTA RRR S1S2 ABD - Obease, NT/ND Ext with edema in either side, good pulses Assessment: []INR 4.18 Plan: []1. Re check INR today off Argatroban, d/c if > 2.0 2. Coumadin 6 mg po daily on discharge and re-check INR on 12/16, I will arrange through clinic. 3. Discussed diet and lifestyle changes on Coumadin and after blood clot. - Walk every 2 hrs at work - Healthy diet and monitor consistency, do not need to avoid vitamin K rich foods - OK to exercise 4. Our office will call for follow up next week.
--- NOTE | 2016-12-11 10:39 | PN ---
Subjective Date of Service: 12/11/16 Interval History: Patient seen this morning. No new complaints. Pleased to be free from IV pole. Family History: Unchanged from Admission Social History: Unchanged from Admission Past Medical History: Unchanged from Admission Objective Active Medications: Dextrose (D50w Syringe 50 Ml*) 12.5 gm IV PUSH .FOR FS < 60 - SS PRN PRN Reason: FS < 60 Famotidine (Pepcid Tab*) 20 mg PO BID [facility] Last Admin: 12/11/16 08:24 Dose: 20 mg Hydrochlorothiazide (Hydrodiuril Tab*) 25 mg PO DAILY [facility] Last Admin: 12/11/16 08:24 Dose: 25 mg Pharmacy Profile Note (Coumadin Daily Reminder*) 1 note FOLLOW UP 1700 [facility] Last Admin: 12/10/16 17:38 Dose: 1 note Warfarin Sodium (Coumadin Tab(*)) 7.5 mg PO DAILY@1700 [facility] PRN Reason: Protocol Last Admin: 12/10/16 17:38 Dose: 7.5 mg Vital Signs 12/10/16 12/10/16 12/10/16 16:01 20:00 20:03 Temperature 98.0 F 98.1 F Pulse Rate 98 96 Respiratory 16 18 16 Rate Blood Pressure 142/73 137/81 (mmHg) O2 Sat by Pulse 97 96 Oximetry 12/10/16 12/11/16 12/11/16 23:17 04:25 07:50 Temperature 98.4 F 98.3 F 97.6 F Pulse Rate 91 93 86 Respiratory 16 16 16 Rate Blood Pressure 136/71 139/74 145/98 (mmHg) O2 Sat by Pulse 97 98 97 Oximetry Oxygen Devices in Use Now: None Appearance: Middle-aged, M, laying in bed in NAD Eyes: No Scleral Icterus Ears/Nose/Mouth/Throat: Mucous Membranes Moist Neck: NL Appearance and Movements; NL JVP Respiratory: Symmetrical Chest Expansion and Respiratory Effort, Clear to Auscultation Cardiovascular: NL Sounds; No Murmurs; No JVD, RRR Abdominal: NL Sounds; No Tenderness; No Distention Lymphatic: No Cervical Adenopathy Extremities: No Edema Skin: No Rash or Ulcers Neurological: Alert and Oriented x 3 Result Diagrams: 12/11/16 07:30 12/10/16 08:15 Microbiology and Other Data: Microbiology 12/03/16 15:30 Nasal Screen MRSA (PCR)([facility]) - Final Nasal Mrsa Negative Assess/Plan/Problems-Billing Assessment: 36 yo M with h/o obesity presents with new PE due to hemodynamic instability received TPA - Patient Problems (1) Acute pulmonary embolus Current Visit: Yes Comment: S/p TPA in ICU on heparin gtt PTT was not therapeutic despite titration of dose. Appreciate Dr. Zavala's consult: started Argatroban on 12/05/16 INR > 4 this AM, Argatroban held, recheck INR pending, if >2 can continue PO coumadin alone Dr. Zavala ordered hypercoag studies, anticardiolipin negative, FVL and Prothrombin gene mutation are pending and will follow with pt in the office ofter discharge (2) DM2 (diabetes mellitus, type 2) Current Visit: Yes Comment: New dx HbA1C 7.7 DM education, nutrition ordered Diet control for now. (3) HTN (hypertension) Current Visit: Yes Comment: HCTZ started, now controlled (4) Troponin level elevated Current Visit: Yes Comment: at admission, due to massive PE requiring TPA (5) DVT prophylaxis Current Visit: Yes Comment: Argatroban, coumadin
--- NOTE | 2016-12-12 02:32 | DS ---
CC: Dr. Almanza DISCHARGE SUMMARY: DATE OF ADMISSION: 12/03/16 DATE OF DISCHARGE: 12/11/16 PRIMARY CARE PHYSICIAN: Dr. Almanza. CONSULTANTS DURING HOSPITALIZATION: Dr. Jorge L Pimentel, Critical Care; Dr. Marco Zavala, Hematology/On cology PRINCIPAL DISCHARGE DIAGNOSES: 1. Large bilateral pulmonary emboli. 2. Acute hypoxic respiratory failure. 3. Diabetes mellitus. 4. Hypertension. STUDIES DONE DURING HOSPITALIZATION: Chest x-ray. Impression: No active cardiopulmonary disease i s noted. CTA of the chest, abdomen, and pelvis. Impression: Large bilateral pulmonary emboli and l arge fat containing ventral hernia, hepatomegaly with fatty infiltration to the liver. Bilateral lo wer extremity Doppler. Impression: There is deep venous system thrombosis involving one of the lorenzo red posterior tibial veins in the left calf. DISCHARGE MEDICATION REGIMEN: 1. Hydrochlorothiazide 25 mg by mouth daily. 2. Warfarin 6 mg by mouth daily. HISTORY OF PRESENT ILLNESS AND HOSPITAL SUMMARY: Please see the full history and physical by Dr. Boyd Pimentel for full details. Briefly, Mr. Howard is a 36-year-old male with no past medical history who presented to the hospital with increasing shortness of breath and was found to have large bilate ral pulmonary emboli. The patient was tachycardic and hypotensive on admission requiring significan t amount of oxygen. He received thrombolytic therapy with TPA with significant improvement in his s ymptoms. He was able to be weaned off oxygen. His blood pressure normalized as well as his heart r ate. The patient was started on a heparin drip; however, there was difficulty getting his PTTs to g oal. Heme/Onc was consulted and Dr. Zavala recommended transitioning the patient to argatroban, which was done. He was bridged with this while starting Coumadin and once the patient's INR was greater than 4, the argatroban was stopped and as per protocol, INR was checked 5 hours later and was greate r than two. The patient will be discharged home on Coumadin and will going to follow up with Dr. Bon darnell as an outpatient. The patient was found to be hypertensive during this hospitalization and hydrochlorothiazide was sta rted. The patient also had elevated blood glucoses and a hemoglobin A1c was found to be 7.7%. The patient was counseled on dietary changes and decision was made to hold off on any medications for no w and the patient will try to alter his diet to improve his blood sugars. He will need to follow up closely with Dr. Almanza regarding this. TIME SPENT: Total time spent on this discharge 40 minutes. This is a summary of the hospitalization. Please see the full medical record for further details. [id number]/[facility] #: [id number]
[2016-12-14 10:15] LABS: Factor V Leiden Mutation Negative (Negative); Prothrombin 20210 Mutation Negative (Negative)
== END 2016-12-11 15:20 | disposition home or self-care (01) | DRG 134 ==
LOC: ED 09:14 → ICU 11:28 → ED 11:52 → MED 12-04 14:09
PROVIDERS: ADMIT Internal Medicine Critical Care Medicine; ATTEND Hospitalist
DX: I26.99 Other pulmonary embolism without acute cor pulmonale (principal); J96.01 Acute respiratory failure with hypoxia; I95.9 Hypotension, unspecified; Z68.43 Body mass index [BMI] 50.0-59.9, adult; K76.0 Fatty (change of) liver, not elsewhere classified; E66.01 Morbid (severe) obesity due to excess calories; E11.9 Type 2 diabetes mellitus without complications; I82.442 Acute embolism and thrombosis of left tibial vein; I10 Essential (primary) hypertension; K43.9 Ventral hernia without obstruction or gangrene; Z79.01 Long term (current) use of anticoagulants
CPT/HCPCS: 36415; 71010; 71275; 74177; 80048; 80053; 81240; 81241; 82550; 82553; 82565; 83036; 83605; 83874; 83880; 84484; 84520; 85025; 85379; 85610; 85730; 86140; 86147; 87040; 87641; 93005; 93970; 99223; 99232; A9270-GY; J0883; J1644; J2543; J2997; Q9967

== ENCOUNTER 2018-02-14 07:07 | Emergency (ER) | payer BC, OTHER ==
[2018-02-14 07:19] VITALS: BP 159/92
--- NOTE | 2018-02-14 07:23 | UC ---
Eye Complaint HPI - HPI Summary HPI Summary: [facility] is [facility] documenting for attending Gilmar Villegas MD. Pt is a 37 y/o M c/o red and inflamed L eye onsetting 3 days ago, Wednesday evening , and worsening today. Eye redness and swelling was localized on L lower eye lid but has worsened radiating to cheek. Pain is secondary to complaint, rated a 2/10 and described as an ache, per comp. assessment. He reports using lots of eye drops in attempts to alleviate the Sx. Assoc. Sx: Errythema, swelling, small amount of drainage. PMHx: HTN. Pt reports no allergies to ABX. - History of Current Complaint Stated Complaint: L EYE COMPLAINT Time Seen by Provider: 02/14/18 07:12 Hx Obtained From: Patient Onset/Duration: Gradual Onset, Lasting Days, Still Present, Worse Since - today Timing: Constant Severity Initially: Mild Severity Currently: Moderate Pain Intensity: 2 Pain Scale Used: 0-10 Numeric Location of Injury: Eye Lid (lower) Alleviating Factor(s): Nothing - Allergies/Home Medications Allergies/Adverse Reactions: Allergies Allergy/AdvReac Type Severity Reaction Status Date / Time No Known Allergies Allergy Verified 02/14/18 07:15 PMH/Surg Hx/FS Hx/Imm Hx Endocrine History: Other Other Endocrine History: NEG: DM Cardiovascular History: Hypertension, Other Other Cardiovascular History: NEG: CAD - Surgical History Surgical History: None - Family History Known Family History: Positive: Unknown, Other - Negative PE Negative: Hypertension - Social History Occupation: Employed Full-time Lives: Dormitory/Roommates Alcohol Use: None Substance Use Type: None Smoking Status (MU): Never Smoked Tobacco - Immunization History Most Recent Influenza Vaccination: 2017 Most Recent Pneumonia Vaccination: NONE Review of Systems Constitutional: Other - NEG: Fever Eyes: Eye Redness - L eye, Other - L Eye swelling All Other Systems Reviewed And Are Negative: Yes Physical Exam - Summary Physical Exam Summary: General: well-appearing, no pain distress Skin: warm, color reflects adequate perfusion, dry Head: normal Eyes: EOMI, MINAL. L lower lateral eyelid: (+) swelling, (+) erythema, (-) drainage, (+) scleral injection. minimal spread of erythema inferior to eyelid. ENT: normal Neck: supple, nontender Respiratory: CTA, breath sounds present Cardiovascular: RRR Abdomen: soft, nontender Bowel: present Musculoskeletal: normal, strength/ROM intact Neurological: sensory/motor intact, A&O x3 Psychological: affect/mood appropriate Triage Information Reviewed: Yes Vital Signs Reviewed: Yes Eye Complaint Course/Dx - Course Course Of Treatment: Pt was seen by provider. Pt will be D/C with ABX pills and eye drops. PO ABX GIVEN DUE TO SLIGHT SPREAD OF ERYTHEMA AND C/O OF CELLULITIS. NO C/O PAIN WITH EYE MOVEMENT. - Differential Dx/Diagnosis Provider Diagnoses: LEFT LOWER EYELID stye Discharge - Sign-Out/Discharge Documenting (check all that apply): Patient Departure - Discharge Plan Condition: Stable Disposition: HOME Prescriptions: Amoxicillin/Clavulanate TAB* [Augmentin TAB 875*] 875 mg PO BID #20 tab Tobramycin 0.3% OPHTH.DAVID* 1 drop LEFT EYE Q4H #1 btl Patient Education Materials: Allegra (ED) Referrals: [facility] [place] [facility] [Outside] Kwabena Alexander MD [Medical Doctor] - Additional Instructions: FOLLOW UP WITH YOUR PRIMARY CARE DOCTOR OR OPHTHALMOLOGY IF NOT COMPLETELY IMPROVED. GET RECHECKED FOR ANY WORSENING OF YOUR CONDITION OR QUESTIONS OR CONCERNS. - Billing Disposition and Condition Condition: STABLE Disposition: Home
== END 2018-02-14 07:23 | disposition home or self-care (01) ==
LOC: UCEAST 07:07
DX: H00.025 Hordeolum internum left lower eyelid (principal)
CPT/HCPCS: 99212; G0463